=== PATIENT | female | born 1995 | race Caucasian/White ===

== ENCOUNTER 2023-06-18 04:56 | Emergency (ER) | payer BC ==
[~2023-06-18 04:56] MED LIST: KETOROLAC 30 MG/ML INJ ONE; NA CHLORIDE 0.9% 1,000 ML ONE
--- OUTSIDE RECORDS SUMMARY | 2023-06-18 05:00 | XMS REPORT | Continuity of Care Document ---
:1995 Author Organization [facility] t Address [address] [place] [address] [address] [place] [address] Care Team Providers Name Role Phone NGUYEN PEREZ Primary Care Physician Unavailable CRISTOBAL DIAZ Attending Clinician Unavailable Pob, Adc Lab Main Attending Clinician Unavailable Cristobal Diaz MD Attending Clinician Doctor Unassigned, [place] Attending Clinician Unavailable Vls-Lab Attending Clinician Unavailable Nguyen Perez MD Attending Clinician [phone] Mali Caballero MD Attending Clinician MALI CABALLERO Attending Clinician Unavailable NGUYEN PEREZ Attending Clinician Unavailable SHAKEEL HUGHES Attending Clinician Unavailable Page Dunham MD Attending Clinician Payers Payer Name Policy Type Policy Number Effective Date Expiration Date S [facility] [id number] 2019 00:00:00 Problems Condition Condition Condition Status Onset Resolution Last Treating Co mments Source Name Details Category Date Date Treatment Clinician Date Rectal Rectal Disease Active Univers bleeding bleeding 3-14 ity of 00:00: [place] [facility] Allergies, Adverse Reactions, Alerts Allergy Allergy Status Severity Reaction(s) Onset Inactive Treating Comm ents Source Name Type Date Date Clinician Cefprozi Propensi Active Rash Univer s l ty to 6-11 ity of adverse 00:00: [place] reaction 00 Medical s Branch CEFPROZI DRUG Active Rash Univers L INGREDI 6-11 ity of 00:00: [place] 00 Medical Branch Social History Social Habit Start Date Stop Date Quantity Comments Source Exposure to Not sure University SARS-CoV-2 [facility] (event) Branch Alcohol intake 2022-02-04 2022-02-04 Current University 00:00:00 00:00:00 non-drinker of [facility] alcohol Branch (finding) Tobacco use and 2015-05-04 2015-05-04 Never used Universit y of exposure 00:00:00 00:00:00 [facility] Sex Assigned At [birth year] Universit y of 00:00:00 00:00:00 [facility] Smoking Status Start Date Stop Date Source Never smoker [facility] Medications Ordered Filled Start Stop Current Ordering Indication Dosage Frequency Signature Comments Components Source Medication Medication Date Date Medication? Clinician (SIG) Name Name Sulfacetami Yes [id number] Apply to Univers de 3-08 area(s) at ity of Sodium-Sulf [place] 10-5 % 00 Medical (w/v) Lotn Branch clindamycin Yes [id number] Apply to Univers 1 % gel 3-08 area(s) ity of 00:00: every [place] 00 morning. Medical Branch Sulfacetami 0 Yes [id number] Apply to Univers de 3-08 area(s) at ity of Sodium-Sulf 00:[place] 10-5 % 00 Medical (w/v) Lotn Branch clindamycin Yes [id number] Apply to Univers 1 % gel 3-08 area(s) ity of 00:00: every [place] 00 morning. Medical Branch Sulfacetami 0 Yes [id number] Apply to Univers de 3-08 area(s) at ity of Sodium-Sulf 00:[place]: [place] 10-5 % 00 Medical (w/v) Lotn Branch clindamycin 0 Yes [id number] Apply to Univers 1 % gel 3-08 area(s) ity of 00:00: every [place] 00 morning. Medical Branch Sulfacetami 0 Yes [id number] Apply to Univers de 3-08 area(s) at ity of Sodium-Sulf 00:00: [place] 10-5 % 00 Medical (w/v) Lotn Branch clindamycin Yes [id number] Apply to Univers 1 % gel 3-08 area(s) ity of 00:00: every [place] 00 morning. Medical Branch ergocalcife 2018-11 Yes [id number] Take 1 Univers rol, 1-17 capsule by ity of vitamin d2, 00:00: mouth [place] (VITAMIN 00 weekly. Medical D2) 50,000 Branch unit capsule ergocalcife 2018-11 Yes [id number] Take 1 Univers rol, 1-17 capsule by ity of vitamin d2, 00:00: mouth [place] (VITAMIN 00 weekly. Medical D2) 50,000 Branch unit capsule ergocalcife 2018-11 Yes [id number] Take 1 Univers rol, 1-17 capsule by ity of vitamin d2, 00:00: mouth [place] (VITAMIN 00 weekly. Medical D2) 50,000 Branch unit capsule ergocalcife 2018-11 Yes [id number] Take 1 Univers rol, 1-17 capsule by ity of vitamin d2, 00:00: mouth [place] (VITAMIN 00 weekly. Medical D2) 50,000 Branch unit capsule ASHWAGANDHA Yes Univer s ROOT 9-11 ity of EXTRACT,BUL 09:41: [place] [address] Medical Branch ASHWAGANDHA Yes Univer s ROOT 9-11 ity of EXTRACT,BUL 09:41: [address] ASHIDGANDHA Yes Univer s ROOT 9-11 ity of EXTRACT,BUL 09:41: [place] [address] Medical [place] ASHWAGANDHA Yes Univer s ROOT 9-11 ity of EXTRACT,BUL 09:41: [place] [address] Medical Branch meloxicam Yes [id number] Take 1-2 Univers 7.5 mg 8-30 tabs daily ity of tablet 00:00: before [place] 00 periods. Medical Branch meloxicam Yes [id number] Take 1-2 Univers 7.5 mg 8-30 tabs daily ity of tablet 00:00: before [place] 00 periods. Medical Branch meloxicam Yes [id number] Take 1-2 Univers 7.5 mg 8-30 tabs daily ity of tablet 00:00: before [place] 00 periods. [facility] meloxicam 0 Yes [id number] Take 1-2 Univers 7.5 mg 8-30 tabs daily ity of tablet 00:00: before [place] 00 periods. [facility] Immunizations Ordered Immunization Filled Immunization Date Status Commen ts Source Name Name HPV 2014-05-17 Completed University of 00:00:00 [facility] HPV 2014-05-17 Completed University of 00:00:00 [facility] HPV 2014-05-17 Completed University of 00:00:00 [facility] HPV 2014-05-17 Completed University of 00:00:00 [facility] HEPATITIS A 2011-07-05 Completed University of 00:00:00 [facility] HEPATITIS A 2011-07-05 Completed University of 00:00:00 [facility] HEPATITIS A 2011-07-05 Completed University of 00:00:00 [facility] HEPATITIS A 2011-07-05 Completed University of 00:00:00 [facility] Influenza Virus 2010-07-10 Completed Universit y of Vaccine Quad Nasal 00:00:00 [facility] Influenza Virus 2010-07-10 Completed Universit y of Vaccine Quad Nasal 00:00:00 [facility] Influenza Virus 2010-07-10 Completed Universit y of Vaccine Quad Nasal 00:00:00 [facility] Influenza Virus 2010-07-10 Completed Universit y of Vaccine Quad Nasal 00:00:00 [facility] Meningococcal 2009-08-06 Completed University of Polysaccharide 00:00:00 [place] Med[facility] eri (groups A, C, Y and Branc h W-135) conjugate vaccine (MCV4P) Meningococcal 2009-08-06 Completed University of Polysaccharide 00:00:00 [place] Medi eri (groups A, C, Y and Branc h W-135) conjugate vaccine (MCV4P) Meningococcal 2009-08-06 Completed University of Polysaccharide 00:00:00 [place] Med[facility]i (groups A, C, Y and Branc h W-135) conjugate vaccine (MCV4P) Meningococcal 2009-08-06 Completed University of Polysaccharide 00:00:00 [place] Med[facility]i (groups A, C, Y and Branc h W-135) conjugate vaccine (MCV4P) HPV 2009-07-10 Completed University of 00:00:00 [facility] Influenza Virus 2009-07-10 Completed Universit y of Vaccine Quad Nasal 00:00:00 [facility] Varicella 2009-07-10 Completed University of (varivax)(chicken 00:00:00 [place] [facility] pox) Branch TDAP 2009-07-10 Completed University of 00:00:00 [facility] HPV 2009-07-10 Completed University of 00:00:00 [facility] Influenza Virus 2009-07-10 Completed Universit y of Vaccine Quad Nasal 00:00:00 [facility] Varicella 2009-07-10 Completed University of (varivax)(chicken 00:00:00 [place] [facility] pox) Branch TDAP 2009-07-10 Completed University of 00:00:00 [facility] HPV 2009-07-10 Completed University of 00:00:00 [facility] Influenza Virus 2009-07-10 Completed Universit y of Vaccine Quad Nasal 00:00:00 [facility] Varicella 2009-07-10 Completed University of (varivax)(chicken 00:00:00 [place] [facility] pox) Branch TDAP 2009-07-10 Completed University of 00:00:00 [facility] HPV 2009-07-10 Completed University of 00:00:00 [facility] Influenza Virus 2009-07-10 Completed Universit y of Vaccine Quad Nasal 00:00:00 [facility] Varicella 2009-07-10 Completed University of (varivax)(chicken 00:00:00 [place] [facility] pox) Branch TDAP 2009-07-10 Completed University of 00:00:00 [facility] HEPATITIS A 2005-01-29 Completed University of 00:00:00 [facility] HEPATITIS A 2005-01-29 Completed University of 00:00:00 [facility] HEPATITIS A 2005-01-29 Completed University of 00:00:00 [facility] HEPATITIS A 2005-01-29 Completed University of 00:00:00 [facility] Branch IPV 2002-02-18 Completed University of 00:00:00 [facility] Branch MMR 2002-02-18 Completed University of 00:00:00 [facility] Branch IPV 2002-02-18 Completed University of 00:00:00 [facility] Branch MMR 2002-02-18 Completed University of 00:00:00 [facility] Branch IPV 2002-02-18 Completed University of 00:00:00 [facility] Branch MMR 2002-02-18 Completed University of 00:00:00 [facility] IPV 2002-02-18 Completed University of 00:00:00 [facility] MMR 2002-02-18 Completed University of 00:00:00 [facility] TDAP 2002-01-29 Completed University of 00:00:00 [facility] TDAP 2002-01-29 Completed University of 00:00:00 [facility] TDAP 2002-01-29 Completed University of 00:00:00 [facility] TDAP 2002-01-29 Completed University of 00:00:00 [facility] TDAP 1999-04-16 Completed University of 00:00:00 [facility] Heamophilus Influenza 1999-04-16 Completed Uni versity of B 00:00:00 [facility] TDAP 1999-04-16 Completed University of 00:00:00 [facility] Heamophilus Influenza 1999-04-16 Completed Uni versity of B 00:00:00 [facility] TDAP 1999-04-16 Completed University of 00:00:00 [facility] Heamophilus Influenza 1999-04-16 Completed Uni versity of B 00:00:00 [facility] TDAP 1999-04-16 Completed University of 00:00:00 [facility] Heamophilus Influenza 1999-04-16 Completed Uni versity of B 00:00:00 [facility] Varicella 1998-12-20 Completed University of (varivax)(chicken 00:00:00 [place] [facility] [place] pox) Branch [facility] 1998-12-20 Completed University of 00:00:00 [facility] Varicella 1998-12-20 Completed University of (varivax)(chicken 00:00:00 [place] [facility] [place] pox) Branch [facility] 1998-12-20 Completed University of 00:00:00 [facility] Varicella 1998-12-20 Completed University of (varivax)(chicken 00:00:00 [place] [facility] [place] pox) Branch [facility] 1998-12-20 Completed University of 00:00:00 [facility] Varicella 1998-12-20 Completed University of (varivax)(chicken 00:00:00 [place] [facility] [place] pox) Branch [facility] 1998-12-20 Completed University of 00:00:00 [facility] Hep B, Adol or Pedi 1998-09-06 Completed Unive rsity of Dosage 00:00:00 [facility] Hep B, Adol or Pedi 1998-09-06 Completed Unive rsity of Dosage 00:00:00 [facility] Branch Hep B, Adol or Pedi 1998-09-06 Completed Unive rsity of Dosage 00:00:00 [place] [facility] Hep B, Adol or Pedi 1998-09-06 Completed Unive rsity of Dosage 00:00:00 [facility] Branch TDAP 1998-06-21 Completed University of 00:00:00 [facility] Branch Heamophilus Influenza 1998-06-21 Completed Uni versity of B 00:00:00 [place] [facility] Polio (IPV/OPV) 1998-06-21 Completed Universit y of 00:00:00 [place] [facility] TDAP 1998-06-21 Completed University of 00:00:00 [facility] Branch Heamophilus Influenza 1998-06-21 Completed Uni versity of B 00:00:00 [facility] Branch Polio (IPV/OPV) 1998-06-21 Completed Universit y of 00:00:00 [facility] Branch TDAP 1998-06-21 Completed University of 00:00:00 [facility] Branch Heamophilus Influenza 1998-06-21 Completed Uni versity of B 00:00:00 [facility] Branch Polio (IPV/OPV) 1998-06-21 Completed Universit y of 00:00:00 [facility] Branch TDAP 1998-06-21 Completed University of 00:00:00 [facility] Branch Heamophilus Influenza 1998-06-21 Completed Uni versity of B 00:00:00 [facility] Branch Polio (IPV/OPV) 1998-06-21 Completed Universit y of 00:00:00 [facility] Branch Hep B, Adol or Pedi 1998-04-20 Completed Unive rsity of Dosage 00:00:00 [place] [facility] Hep B, Adol or Pedi 1998-04-20 Completed Unive rsity of Dosage 00:00:00 [place] [facility] Hep B, Adol or Pedi 1998-04-20 Completed Unive rsity of Dosage 00:00:00 [place] [facility] Hep B, Adol or Pedi 1998-04-20 Completed Unive rsity of Dosage 00:00:00 [facility] Branch TDAP 1998-04-12 Completed University of 00:00:00 [facility] Branch Heamophilus Influenza 1998-04-12 Completed Uni versity of B 00:00:00 [facility] Branch Polio (IPV/OPV) 1998-04-12 Completed Universit y of 00:00:00 [facility] TDAP 1998-04-12 Completed University of 00:00:00 [facility] Branch Heamophilus Influenza 1998-04-12 Completed Uni versity of B 00:00:00 [facility] Branch Polio (IPV/OPV) 1998-04-12 Completed Universit y of 00:00:00 [facility] TDAP 1998-04-12 Completed University of 00:00:00 [facility] Heamophilus Influenza 1998-04-12 Completed Uni versity of B 00:00:00 [facility] Branch Polio (IPV/OPV) 1998-04-12 Completed Universit y of 00:00:00 [facility] Branch TDAP 1998-04-12 Completed University of 00:00:00 [facility] Heamophilus Influenza 1998-04-12 Completed Uni versity of B 00:00:00 [facility] Polio (IPV/OPV) 1998-04-12 Completed Universit y of 00:00:00 [facility] TDAP 1998-02-20 Completed University of 00:00:00 [facility] Heamophilus Influenza 1998-02-20 Completed Uni versity of B 00:00:00 [facility] Polio (IPV/OPV) 1998-02-20 Completed Universit y of 00:00:00 [facility] TDAP 1998-02-20 Completed University of 00:00:00 [facility] Heamophilus Influenza 1998-02-20 Completed Uni versity of B 00:00:00 [facility] Polio (IPV/OPV) 1998-02-20 Completed Universit y of 00:00:00 [facility] TDAP 1998-02-20 Completed University of 00:00:00 [facility] Heamophilus Influenza 1998-02-20 Completed Uni versity of B 00:00:00 [facility] Polio (IPV/OPV) 1998-02-20 Completed Universit y of 00:00:00 [facility] TDAP 1998-02-20 Completed University of 00:00:00 [facility] Heamophilus Influenza 1998-02-20 Completed Uni versity of B 00:00:00 [facility] Polio (IPV/OPV) 1998-02-20 Completed Universit y of 00:00:00 [facility] Hep B, Adol or Pedi 1998-01-22 Completed Unive rsity of Dosage 00:00:00 [facility] Hep B, Adol or Pedi 1998-01-22 Completed Unive rsity of Dosage 00:00:00 [facility] Hep B, Adol or Pedi 1998-01-22 Completed Unive rsity of Dosage 00:00:00 [facility] Hep B, Adol or Pedi 1998-01-22 Completed Unive rsity of Dosage 00:00:00 [facility] Vital Signs Vital Name Observation Time Observation Value Comments Source Systolic blood 2022-02-04 15:56:00 149 mm[Hg] Univer sity of pressure [facility] Diastolic blood 2022-02-04 15:56:00 95 mm[Hg] Unive rsity of pressure [facility] Heart rate 2022-02-04 15:56:00 102 /min [facility] Body temperature 2022-02-04 15:56:00 [facility].28 [facility] height 2022-02-04 15:56:00 152.4 cm [facility] Body weight 2022-02-04 15:56:00 53.524 kg [facility] BMI 2022-02-04 15:56:00 23.05 kg/m2 [facility] Oxygen saturation in 2022-02-04 15:56:00 98 /min [facility] blood by [facility] Pulse oximetry Branch Procedures Procedure Date / Time Performed Performing Clinician [facility] e ASSIGNMENT OF BENEFITS 2022-02-05 16:02:29 Doctor Unassigned, No [facility] Encounters Start End Encounter Admission Attending Care Care Encounter Source Date/Time Date/Time Type Type Clinicians Facility Department ID 2022-06-04 2022-06-04 Outpatient R JOE [facility] [id number] Univers 13:30:00 13:30:00 [facility] 2022-06-04 2022-06-04 Outpatient R JOE [facility] [id number] Univers 13:30:00 13:30:00 [facility] 2022-02-05 2022-02-05 Vest Front Presser Taj [facility] Lab Main [facility] 1.2.8 [id number] Univers 11:15:00 11:30:00 [facility] [id number] [id number] [phone] Nh marcel BONE [address] [place] [address] 2022-02-05 2022-02-05 Outpatient R LE, [facility] [id number] Univers 11:15:00 11:15:00 [facility] 2022-02-05 2022-02-05 Orders Doctor SOL [id number] Univers 00:00:00 00:00:00 Only Unassigned, LICO [id number] ity of [facility] [id number] [place] [phone] [address] 2022-02-04 2022-02-04 Vest Front Presser Vls-Lab [facility] [id number] Univers 12:15:00 12:30:00 Visit Joe [facility] SPECIALTY [id number] it[place] [id number] AT [phone] Nh marcel ANDREWS [address] [place] [address] 2022-02-04 2022-02-04 Outpatient R LE, [facility] [id number] Univers 11:00:00 11:48:29 [facility] 2022-02-04 2022-02-04 Outpatient R LE, [facility] [id number] Univers 11:00:00 11:48:29 [facility] 2022-02-04 2022-02-04 [facility] [id number] Univers 11:00:00 11:48:29 Visit [facility] SPECIALTY [id number] [place] [id number] [phone] Nh marcel ANDREWS 072 [facility] 2021-04-11 2021-04-11 [facility] 1.2.840.114 [id number] Univers 00:00:00 00:00:00 Secure Msg Nguyen Caro [id number] [place] [id number] [phone] [address] 2021-03-06 2021-03-06 [facility] 1.2.840.114 [id number] Univers 00:00:00 00:00:00 Secure Msg Mali Richter MULTISPEC [id number] it[place] I[place] [id number] [phone] [address] [facility] 2021-02-02 2021-02-02 Telephone Federico [facility] 1.2.840.114 [id number] Univers 00:00:00 00:00:00 Mali Richter HEALTH [id number] ity of CLINICS [id number] [phone] [address] 2021-01-29 2021-01-29 [facility] 1.2.840.114 [id number] Univers 10:19:43 11:12:25 Visit Mali Richter MULTISPEC [id number] it[place] [id number] [phone] [address] [facility] 2021-01-29 2021-01-29 Outpatient R FEDERICO [facility] [id number] Univers 10:30:00 10:30:[address] [facility] 2020-11-22 2020-11-22 Orders Doctor HORTON 1.2.840.114 [id number] Univers 00:00:00 00:00:00 Only Unassigned, LICO [id number] ity of [place] [facility] [id number] Ralph as [phone] [place] [address] Branch 2020-11-13 2020-11-13 [facility] [id number] Univers 13:30:00 13:30:[address] [facility] 2020-11-02 2020-11-02 Orders Doctor HORTON 1.2.840.114 [id number] Univers 00:00:00 00:00:00 Only Unassigned, LICO [id number] ity of [place] [facility] [id number] [place] as [phone] [address] 2020-10-18 2020-10-18 Telephone [facility] 1.2.840.114 [id number] Univers 00:00:00 00:00:00 Nguyen A [place] [id number] [place] [id number] [phone] [address] 2020-10-02 2020-10-02 [facility] [id number] Univers 10:30:00 10:30:[address] [facility] 2020-10-02 2020-10-02 Orders SOL Perez 1.2.840.114 [id number] Univers 00:00:00 00:00:00 Only Nguyen [place] [id number] ity of [facility] [id number] [place] as [phone] [address] 2020-09-27 2020-09-27 Telephone [facility] 1.2.840.114 [id number] Univers 00:00:00 00:00:00 Nguyen Treviño [place] [id number] [place] [id number] [phone] [address] 2020-09-26 2020-09-26 [facility] [id number] Univers 11:30:00 11:30:[address] [facility] 2020-09-15 2020-09-15 Outpatient R ELLEN [facility] [id number] Univers 08:00:00 08:00:[address] [facility] 2020-09-08 2020-09-08 Patient Perez, [facility] 1.2.840.114 [id number] Univers 00:00:00 00:00:00 Secure Msg Nguyen A [place] [id number] [place] [id number] [phone] [address] 2020-07-17 2020-07-17 Patient Chris [facility] 1.2.840.114 [id number] Univers 00:00:00 00:00:00 Secure Msg Nguyen A [place] [id number] [place] [id number] [phone] [address] 2020-02-21 2020-02-21 Patient Chris [facility] 1.2.840.114 [id number] Univers 00:00:00 00:00:00 Secure Msg Nguyen Kamila [facility] [id number] ity of [place] [id number] [place] as Professio [phone] [address] One 2019-12-30 2019-12-30 Refill Chris [facility] 1.2.840.114 [id number] Univers 00:00:00 00:00:00 Nguyen A [place] [id number] [place] [id number] [phone] [address] 2019-11-11 2019-11-11 Patient Chris [facility] 1.2.840.114 [id number] Univers 00:00:00 00:00:00 Secure Msg Nguyen A [place] [id number] [place] [id number] [phone] [address] 2019-08-06 2019-08-06 Orders Page Dunham 1.2.601.001 [id number] Univers 00:00:00 00:00:00 Only Cam LICO [id number] it y of [facility] [id number] [place] as [phone] [address] 2019-08-04 2019-08-04 Office Page Dunham [facility] [id number] Univers 09:19:41 10:18:43 Visit Cam Daniel [id number] i ty [place] [id number] [phone] [facility] [address] [facility] 2019-07-22 2019-07-22 [facility] 1.2.840.114 [id number] Univers 00:00:00 00:00:00 Nguyen Caro [id number] [id number] [phone] [facility] [address] [facility] 2019-07-04 2019-07-04 [facility] 1.2.840.114 [id number] Univers 00:00:00 00:00:00 Management Nguyen Caro [id number] [place] [id number] [phone] [address] 2019-06-21 2019-06-21 Telephone [facility] [id number] Univers 00:00:00 00:00:00 Nguyen Caro [id number] it[id number] [phone] [address] 2019-06-17 2019-06-17 [facility] [id number] Univers 14:42:27 15:55:33 Visit Nguyen Caro [id number] it[id number] [phone] [address] 2019-06-17 2019-06-17 Orders Doctor SOL [id number] Univers 00:00:00 00:00:00 Only Unassigned, LICO [id number] ity of [facility] [id number] Ralph as [phone] [place] [id number] Branch Results This patient has no known results.
[2023-06-18 05:20] LABS: Albumin 3.7 g/dL (3.4-5.0); Bilirubin Total 0.2 mg/dL (0.2-1.0); Potassium 3.4 mEq/L (3.5-5.1)
[2023-06-18 05:21] LABS: Absolute Lymphocytes (CBC) 2.5 K/uL (0.7-4.9); Hematocrit 40.1 % (36.0-45.0); Lymphocytes % 30.5 % (15.3-44.8); MCV 83.7 fL (80-100); MPV 6.8 fL (7.6-11.3); RBC Red Blood Cell Count 4.79 M/uL (3.86-4.86); Specific Gravity 1.012 (1.005-1.030); Urine Bacteria None Seen /HPF (<20); Urine Bilirubin NEGATIVE (Negative); Urine Blood 3+ (OVER) (Negative); Urine Clarity Extremely Turbid (Clear); Urine Color Light-Red (Yellow); Urine Glucose NEGATIVE (Negative); Urine Protein 2+ (Negative); Urine RBC >50 /HPF (None Seen); Urine Urobilinogen Normal (Normal); Urine pH 7.5 (5.0-7.0)
[2023-06-18 05:22] LABS: Specific Gravity 1.012 (1.005-1.030)
[2023-06-18] MEDS ORDERED: metroNIDAZOLE 500 MG TABLET ONE (06:05)
[2023-06-18] MEDS ORDERED: DIPHENOX/ATROP SULF 1 TAB PO ONE (06:05)
[2023-06-18] MEDS ORDERED: PROMETHAZINE 25 MG TABLET ONE (06:05)
[2023-06-18] MEDS ORDERED: levoFLOXacin 250 MG TAB ONE (06:05)
[2023-06-18] MEDS ORDERED: DICYCLOMINE HCL 10 MG CAP ONE (06:06)
--- NOTE | 2023-06-18 07:44 | RAD REPORT ---
EXAM DESCRIPTION: CT - Abdomen Pelvis W Contrast - 06/18/2023 6:47 am CLINICAL HISTORY: Abdominal pain COMPARISON: none. TECHNIQUE: Computed axial tomography of the abdomen pelvis was obtained. 100 cc Isovue-300 was admin istered intravenously. Oral contrast was not requested which limits evaluation of bowel and appendix All CT scans are performed using dose optimization technique as appropriate and may include automated exposure control or mA/KV adjustment according to patient size. FINDINGS: The liver, spleen, pancreas, adrenal and kidneys appear unremarkable. There is no evidence of diverticulitis. Normal appendix Fluid throughout nondilated large and small bowel. IMPRESSION: Fluid throughout nondilated large and small bowel may indicate an enteritis
--- NOTE | 2023-06-18 08:08 | ER ---
Nurse's Notes [facility] Name: Maribel Ocampo Age: 27 yrs Sex: Female : 1995 Arrival Date: 06/18/2023 Time: 02:31 Bed 5 Private MD: Diagnosis: Enteritis, abdominal pain Presentation: 06/18 02:39 Chief complaint: Patient states: NAUSEA AND DIARRHEA, ABD PAIN X 3 WKS. Coronavirus rv screen: At this time, the client does not indicate any symptoms associated with coronavirus-19. Ebola Screen: No symptoms or risks identified at this time. Initial Sepsis Screen: Does the patient meet any 2 criteria? No. Patient's initial sepsis screen is negative. Does the patient have a suspected source of infection? No. Patient's initial sepsis screen is negative. Risk Assessment: Do you want to hurt yourself or someone else? Patient reports no desire to harm self or others. Onset of symptoms was June 18, 2023. 02:39 Method Of Arrival: Ambulatory rv 02:39 Acuity: ELIZABETH 3 rv Triage Assessment: 02:40 General: Appears uncomfortable, Behavior is calm, cooperative. Pain: Complains of pain rv in abdomen. EENT: Ear canal. Neuro: Level of Consciousness is awake, alert, obeys commands, Oriented to person, place, time, situation. Cardiovascular: Capillary refill < 3 seconds. Respiratory: Airway is patent Respiratory effort is even, unlabored. GI: Abdomen is flat, non-distended, Bowel sounds present X 4 quads. Abd is soft and non tender X 4 quads. 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 - Social history:: Smoking status: Patient denies any tobacco usage or history of. - Family history:: not pertinent. Screenin:42 [facility] ED Fall Risk Assessment (Adult) History of falling in the last 3 months, rv including since admission No falls in past 3 months (0 pts) Confusion or Disorientation No (0 pts) Intoxicated or Sedated No (0 pts) Impaired Gait No (0 pts) Mobility Assist Device Used No (0 pt) Altered Elimination No (0 pt) Score/Fall Risk Level 0 - 2 = Low Risk Oriented to surroundings, Maintained a safe environment, Educated pt \T\ family on fall prevention, incl call for assistance when getting out of bed, Assessed \T\ reinforced patient's understanding of fall precautions, Provided non-skid footwear, Hourly rounding (assess needs \T\ fall precautionary measures) done, Used ambulatory aids as needed (educated on \T\ assisted with), Used gait belt as appropriate. Abuse screen: Denies threats or abuse. Denies injuries from another. Nutritional screening: No deficits noted. Tuberculosis screening: No symptoms or risk factors identified. Assessment: 07:30 Neuro: Level of Consciousness is awake, alert, obeys commands, Oriented to person, db place, time, situation. 08:00 Reassessment: Patient appears in no apparent distress at this time. Patient and/or db family updated on plan of care and expected duration. Pain level reassessed. Patient is alert, oriented x 3, equal unlabored respirations, skin warm/dry/pink. Patient states feeling better. General: Appears in no apparent distress. comfortable, Behavior is calm, cooperative. Vital Signs: 02:39 BP 159 / 104; Pulse 108; Resp 19; Temp 99; Pulse Ox 100% ; Weight 45 kg; Height 5 ft. 0 rv in. ; 05:30 BP 141 / 91; Pulse 92; Resp 18; Pulse Ox 100% on R/A; rv 06:33 BP 104 / 71; Pulse 78; Resp 16 S; Pulse Ox 99% on R/A; as6 07:19 BP 113 / 83; Pulse 74; Resp 16; Pulse Ox 99% ; ko1 08:00 BP 116 / 79; Pulse 76; Resp 16; Pulse Ox 100% on R/A; db 02:39 Body Mass Index 19.38 (45.00 kg, 152.4 cm) rv ED Course: 02:31 Patient arrived in ED. jj6 02:38 Johnny Jennings RN is Primary Nurse. rv 02:39 Triage completed. rv 02:42 Ashish Tsai MD is Attending Physician. sp4 02:42 Arm band placed on. rv 02:42 Patient has correct armband on for positive identification. Bed in low position. Call rv light in reach. Side rails up X 1. Client placed on continuous cardiac and pulse oximetry monitoring. NIBP monitoring applied. 02:55 Inserted saline lock: 20 gauge in right antecubital area, using aseptic technique. rv Blood collected. 07:11 Abdomen In Process Unspecified. EDMS 07:13 Attending Physician role handed off by Ashish Tsai MD sp3 07:13 Myke Rosen MD is Attending Physician. sp3 07:18 Urine Culture Sent. ko1 08:21 Provided Education on: na. ko1 08:21 No provider procedures requiring assistance completed. IV discontinued, intact, ko1 bleeding controlled, No redness/swelling at site. Pressure dressing applied. Administered Medications: 03:02 Drug: NS 0.9% IV 1000 ml Route: IV; Rate: 1 bolus; Site: right antecubital; rv 05:30 Follow up: IV Status: Completed infusion; IV Intake: 1000ml rv 05:30 Drug: TORadol - Ketorolac IVP 30 mg Route: IVP; Site: right antecubital; rv 06:00 Follow up: Response: No adverse reaction rv 05:59 Drug: Dicyclomine PO 20 mg Route: PO; rv 05:59 Drug: Promethazine PO 25 mg Route: PO; rv 05:59 Drug: LevOfloxacin PO 500 mg Route: PO; rv 05:59 Drug: metroNIDAZOLE PO 500 mg Route: PO; rv 06:00 Drug: Diphenoxylate-Atropine PO 2 tabs Route: PO; rv Medication: 02:42 VIS not applicable for this client. rv Intake: 05:30 IV: 1000ml; Total: 1000ml. rv Outcome: 08:08 Discharge ordered by . sp3 08:21 Discharged to home ambulatory, with family. ko1 08:21 Condition: good 08:21 Discharge instructions given to patient, family, Instructed on discharge instructions, follow up and referral plans. medication usage, Demonstrated understanding of instructions, follow-up care, medications, Prescriptions given X x5 08:23 Patient left the ED. ko1 Signatures: Dispatcher [employer] EDWY Johnny Jennings RN RN rv Myke Rosne MD MD sp3 Rosalina Dominguez Ashby, RN RN as6 Nancy Dahl RN RN ko1 Hyun Resendiz RN RN db Ashish Tsai MD MD sp4
--- NOTE | 2023-06-18 08:08 | EDPHYS ---
Physician Documentation [facility] Name: Maribel Ocampo Age: 27 yrs Sex: Female : 1995 Arrival Date: 06/18/2023 Time: 02:31 Bed 5 Private MD: ED Physician Myke Rosen HPI: 06/18 02:48 This 27 yrs old White Female presents to ER via Ambulatory with complaints of Ear Pain, sp4 Abdominal Pain. 02:48 27-year-old female presents with 3 weeks of lower abdominal pain. Patient states she is sp4 on control. Patient is on the nextstellis ( Drospirenone / estetrol ) control tablets daily . Patient reports worsening abdominal pain for the past 3 weeks in area of lower abdomen with no additional symptoms. Did visit urgent care clinic yesterday and was advised to manage it as constipation. . 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 - Social history:: Smoking status: Patient denies any tobacco usage or history of. - Family history:: not pertinent. ROS: 02:48 Constitutional: Negative for fever, chills, and weight loss, Abdomen/GI: Negative for sp4 nausea, vomiting, diarrhea, and constipation, positive for lower abdominal pain 02:48 All other systems are negative. Exam: 02:48 Constitutional: This is a well developed, well nourished patient who is awake, alert, sp4 and in no acute distress. Head/Face: Normocephalic, atraumatic. Eyes: Pupils equal round and reactive to light, extra-ocular motions intact. Lids and lashes normal. Conjunctiva and sclera are not injected. Cornea within normal limits. Periorbital areas with no swelling, redness, or edema. ENT: Nares patent. No nasal discharge, no septal abnormalities noted. Tympanic membranes are normal and external auditory canals are clear. Oropharynx with no redness, swelling, or masses, exudates, or evidence of obstruction, uvula midline. Mucous membranes moist. Neck: Trachea midline, no thyromegaly or masses palpated, and no cervical lymphadenopathy. Supple, full range of motion without nuchal rigidity, or vertebral point tenderness. Chest/axilla: Normal chest wall appearance and motion. Nontender with no deformity. No lesions are appreciated. Cardiovascular: Regular rate and rhythm with a normal S1 and S2. No gallops, murmurs, or rubs. Normal PMI, no JVD. No pulse deficits. Respiratory: Lungs have equal breath sounds bilaterally, clear to auscultation and percussion. No rales, rhonchi or wheezes noted. No increased work of breathing, no retractions or nasal flaring. Abdomen/GI: Soft, lower abdominal tenderness, with normal bowel sounds. No distension or tympany. No guarding or rebound. Positive lower abdominal tenderness without rebound . Back: No spinal tenderness. No costovertebral tenderness. Skin: Warm, dry with normal turgor. Normal color with no rashes, no lesions, and no evidence of cellulitis. MS/ Extremity: Pulses equal, no cyanosis. Neurovascular intact. Full, normal range of motion. Neuro: Awake and alert, GCS 15, oriented to person, place, time, and situation. Cranial nerves II-XII grossly intact. Motor strength 5/5 in all extremities. Sensory grossly intact. Psych: Awake, alert, with orientation to person, place and time. Behavior, mood, and affect are within normal limits Vital Signs: 02:39 BP 159 / 104; Pulse 108; Resp 19; Temp 99; Pulse Ox 100% ; Weight 45 kg; Height 5 ft. 0 rv in. ; 05:30 BP 141 / 91; Pulse 92; Resp 18; Pulse Ox 100% on R/A; rv 06:33 BP 104 / 71; Pulse 78; Resp 16 S; Pulse Ox 99% on R/A; as6 07:19 BP 113 / 83; Pulse 74; Resp 16; Pulse Ox 99% ; ko1 08:00 BP 116 / 79; Pulse 76; Resp 16; Pulse Ox 100% on R/A; db 02:39 Body Mass Index 19.38 (45.00 kg, 152.4 cm) rv MDM: 02:48 Differential diagnosis: Acute abdominal pain, acute constipation, pancreatitis, sp4 peritonitis, appendicitis, ruptured ovarian cyst, cystic ovarian pain. Data reviewed: vital signs, nurses notes, lab test result(s), radiologic studies, CT scan. 04:28 Patient medically screened. sp4 08:07 ED course: CT demonstrates fluid-filled small loops consistent with her clinical exam. sp3 Patient has no pain at this time. We will safely discharge her home on antibiotics and follow-up with PCP.. 06/18 06:33 Order name: Comprehensive Metabolic Panel; Complete Time: 06:59 EDMS 06/18 06:33 Order name: Lipase; Complete Time: 06:59 EDMS 06/18 06:33 Order name: CBC with Automated Diff; Complete Time: 06:59 EDMS 06/18 06:33 Order name: Urinalysis w/ reflexes; Complete Time: 06:59 EDMS 06/18 06:33 Order name: Test, Urine; Complete Time: 06:59 EDMS 06/18 07:06 Order name: Urine Culture EDMS 06/18 02:46 Order name: CT Abd/Pelvis - IV Contrast Only sp4 06/18 07:10 Order name: Abdomen ; Complete Time: 08:07 EDMS 06/18 02:46 Order name: IV Saline Lock; Complete Time: 02:49 sp4 06/18 02:46 Order name: Labs collected and sent; Complete Time: 02:49 sp4 Administered Medications: 03:02 Drug: NS 0.9% IV 1000 ml Route: IV; Rate: 1 bolus; Site: right antecubital; rv 05:30 Follow up: IV Status: Completed infusion; IV Intake: 1000ml rv 05:30 Drug: TORadol - Ketorolac IVP 30 mg Route: IVP; Site: right antecubital; rv 06:00 Follow up: Response: No adverse reaction rv 05:59 Drug: Dicyclomine PO 20 mg Route: PO; rv 05:59 Drug: Promethazine PO 25 mg Route: PO; rv 05:59 Drug: LevOfloxacin PO 500 mg Route: PO; rv 05:59 Drug: metroNIDAZOLE PO 500 mg Route: PO; rv 06:00 Drug: Diphenoxylate-Atropine PO 2 tabs Route: PO; rv Disposition Summary: 06/18/23 08:08 Discharge Ordered Location: Home sp3 Condition: Stable sp3 Diagnosis - Enteritis, abdominal pain sp3 Followup: sp3 - With: Private Physician - When: Upon discharge from the Emergency Department - Reason: Continuance of care Discharge Instructions: - Discharge Summary Sheet sp4 - Viral Gastroenteritis, Adult, [id number] sp4 - Abdominal Pain, Adult, [id number] sp4 Forms: - Medication Reconciliation Form sp3 - Thank You Letter sp3 - Antibiotic Education sp3 - Prescription Opioid Use sp3 - Patient Portal Instructions sp3 Prescriptions: - ondansetron 4 mg Oral Tablet,disintegrating - take 1 tablet by ORAL route every 6 hours PRN nausea; 30 tablet; Refills: 0, sp4 Product Selection Permitted - Flagyl 500 mg Oral Tablet - take 1 tablet by ORAL route every 8 hours for 10 days; 30 tablet; Refills: 0, sp4 Product Selection Permitted - Levsin 0.125 mg Oral Tablet - take 1 tablet by ORAL route every 8 hours PRN abdominal pain; 30 tablet; sp4 Refills: 0, Product Selection Permitted - Lomotil 2.5-0.025 mg Oral Tablet - take 1 tablet by ORAL route every 6 hours As needed PRN diarrhea; 20 tablet; sp4 Refills: 0, Product Selection Permitted - levofloxacin 500 mg Oral Tablet - take 1 tablet by ORAL route once daily for 7 days; 7 tablet; Refills: 0, sp4 Product Selection Permitted Signatures: Dispatcher [employer] EDMS Johnny Jennings, RN RN rv Myke Rosen MD MD sp3 Ashish Tsai MD MD sp4 Corrections: (The following items were deleted from the chart) 08:19 06:58 CBC+H.LAB.BRZ ordered. EDMS EDMS 08:20 06:58 COMPREHENSIVE METABOLIC PANEL+C.LAB.BRZ ordered. EDMS EDMS 08:20 06:58 LIPASE+C.LAB.BRZ ordered. EDMS EDMS 08:20 06:58 Test, Urine+UC.LAB.BRZ ordered. EDMS EDMS 08:21 06:58 Urinalysis+U.LAB.BRZ ordered. EDMS EDMS
[2023-06-18 08:28] VITALS: O2SAT 99
[2023-06-18 08:29] VITALS: BP 113/83
== END 2023-06-18 08:23 | disposition home or self-care (01) ==
LOC: ER 04:56
DX: K52.9 Noninfective gastroenteritis and colitis, unspecified (principal); Z88.8 Allergy status to other drugs, medicaments and biological substances
CPT/HCPCS: 87088; 85025; 81001; 87086; 36415; 81025; 83690; 80053; 74177; Q9967; Q0169; J7030; 96361; 96374; 99284

== ENCOUNTER 2024-03-29 20:29 | Emergency (ER) | payer BC, OTHER ==
--- NOTE | 2024-03-29 21:34 | EDPHYS ---
Physician Documentation [facility] Name: Maribel Amso Age: 28 yrs Sex: Female : 1995 Arrival Date: 03/29/2024 Time: 20:29 Bed 10 Private MD: ED Physician Ashish Tsai HPI: 03/29 23:48 This 28 yrs old Female presents to ER via Ambulatory with complaints of Rectal Pain. kb 23:48 Pt is a 28 year old female who presents for ulcer in rectum that she would like medication for to treat it. States she has been seeing Dr Troncoso for chronic constipation, had a colonoscopy and followed back up with Karyna today. States she was told she has an ulcer in her rectum and he wanted to do an EGD to further evaluation for ulcerative colitis vs crohns. Pt states she just needs something to treat the ulcer so she came in to get medication. 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 - Infectious Disease History:: Denies. - Social history:: Smoking status: Patient denies any tobacco usage or history of. ROS: 23:47 Constitutional: As per HPI kb Exam: 23:47 Constitutional: This is a well developed, well nourished patient who is awake, alert, kb and in no acute distress. Head/Face: Normocephalic, atraumatic. ENT: Moist Mucous membranes Cardiovascular: Regular rate Respiratory: Respirations even and unlabored. No increased work of breathing. Talking in full sentences Abdomen/GI: Soft, non-tender. No distention Skin: Warm, dry with normal turgor. Normal color. MS/ Extremity: Pulses equal, no cyanosis. Neurovascular intact. Full, normal range of motion. Neuro: Awake and alert, GCS 15, oriented to person, place, time, and situation. Moves all extremities. Normal gait. Vital Signs: 20:50 BP 143 / 92; Pulse 97; Resp 18 S; Temp 98(O); Pulse Ox 100% on R/A; Weight 57.15 kg as6 (R); Height 5 ft. 0 in. ; Pain 7/10; 21:05 BP 146 / 97; Pulse 94; Resp 16; Pulse Ox 100% on R/A; me1 21:36 BP 127 / 81; Pulse 94; Resp 16; Pulse Ox 95% on R/A; me1 20:50 Body Mass Index 24.61 (57.15 kg, 152.4 cm) as6 20:50 Pain Scale: Adult as6 MDM: 20:35 Patient medically screened. kb 23:47 Differential diagnosis: ulcer, colitis, constipation. Data reviewed: vital signs, kb nurses notes. Test considered but Not performed: Labs: cbc and cmp considered but pt is nontoxic in appearance, tolerating po intake. CT: ct abd considered but pt has no abd tenderness . Counseling: I had a detailed discussion with the patient and/or guardian regarding the historical points, exam findings, and any diagnostic results supporting the discharge/admit diagnosis, the need for outpatient follow up, a special equipment technician, to return to the emergency department if symptoms worsen or persist or if there are any questions or concerns that arise at home. ED course: Pt educated to follow up with Dr Troncoso for further eval and treatment as planned. Administered Medications: 21:25 Not Given (Patient Refused): [id number] mg IM once me1 Disposition: 03/30 05:14 Co-signature as Attending Physician, Ashish Tsai MD I agree with the assessment sp4 and plan of care. I reviewed the patient's care provided by the Advanced Practice Provider and agree with the diagnosis and treatment plan. Disposition Summary: 03/29/24 21:33 Discharge Ordered Notes: Location: Home kb Condition: Stable kb Diagnosis - ulcer in rectum kb Followup: kb - With: Emergency Department - When: As needed - Reason: Worsening of condition Followup: kb - With: Private Physician - When: 2 - 3 days - Reason: Recheck today's complaints, Continuance of care, Re-evaluation by your physician Discharge Instructions: - Discharge Summary Sheet kb Forms: - Medication Reconciliation Form kb - Antibiotic Education kb - Prescription Opioid Use kb - Patient Portal Instructions kb - Leadership Thank You Letter kb Signatures: Orly Vazquez FNP-C FNP-Phillip Murray RN RN as6 Ashish Tsai MD MD sp4 Eddleman, Luisana RN me1
--- NOTE | 2024-03-29 21:34 | ER ---
Nurse's Notes [facility] Name: Maribel Amos Age: 28 yrs Sex: Female : 1995 Arrival Date: 03/29/2024 Time: 20:29 Bed 10 Private MD: Diagnosis: ulcer in rectum Presentation: 03/29 20:50 Chief complaint: Patient states: pt states she has a rectal ulcer and wants medicine to as6 help it. Coronavirus screen: At this time, the client does not indicate any symptoms associated with coronavirus-19. Ebola Screen: No symptoms or risks identified at this time. Initial Sepsis Screen: Does the patient meet any 2 criteria? No. Patient's initial sepsis screen is negative. Does the patient have a suspected source of infection? No. Patient's initial sepsis screen is negative. Risk Assessment: Do you want to hurt yourself or someone else? Patient reports no desire to harm self or others. Onset of symptoms. Onset of symptoms is unknown. 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 - Infectious Disease History:: Denies. - Social history:: Smoking status: Patient denies any tobacco usage or history of. Screenin:05 [facility] ED Fall Risk Assessment (Adult) History of falling in the last 3 months, me1 including since admission No falls in past 3 months (0 pts) Confusion or Disorientation No (0 pts) Intoxicated or Sedated No (0 pts) Impaired Gait No (0 pts) Mobility Assist Device Used No (0 pt) Altered Elimination No (0 pt) Score/Fall Risk Level 0 - 2 = Low Risk Maintained a safe environment, Provided non-skid footwear, Hourly rounding (assess needs \T\ fall precautionary measures) done. Abuse screen: Denies threats or abuse. Nutritional screening: No deficits noted. Tuberculosis screening: No symptoms or risk factors identified. Assessment: 21:05 General: Appears uncomfortable, well groomed, well developed, well nourished, Behavior me1 is calm, cooperative, appropriate for age, Reports diagnosed a few weeks ago with an ulcer in her rectum by Dr Nguyen. Was given samples of Linzess that she took but was unable to get the rest at the pharmacy due to insurance denying to pay. Pain: Complains of pain in rectum Pain does not radiate. Pain currently is 3 out of 10 on a pain scale. Quality of pain is described as dull, Pain began Is continuous. Neuro: Level of Consciousness is awake, alert, obeys commands, Oriented to person, place, time, situation, Appropriate for age. Cardiovascular: Capillary refill < 3 seconds Patient's skin is warm and dry. Respiratory: Airway is patent Respiratory effort is even, unlabored, Respiratory pattern is regular, symmetrical. GI: Reports rectal pain. : No signs and/or symptoms were reported regarding the genitourinary system. EENT: No signs and/or symptoms were reported regarding the EENT system. Derm: Skin is intact, is healthy with good turgor, Skin is pink, warm \T\ dry. Musculoskeletal: No signs and/or symptoms reported regarding the musculoskeletal system. Vital Signs: 20:50 BP 143 / 92; Pulse 97; Resp 18 S; Temp 98(O); Pulse Ox 100% on R/A; Weight 57.15 kg as6 (R); Height 5 ft. 0 in. ; Pain 7/10; 21:05 BP 146 / 97; Pulse 94; Resp 16; Pulse Ox 100% on R/A; me1 21:36 BP 127 / 81; Pulse 94; Resp 16; Pulse Ox 95% on R/A; me1 20:50 Body Mass Index 24.61 (57.15 kg, 152.4 cm) as6 20:50 Pain Scale: Adult as6 ED Course: 20:34 Patient arrived in ED. gm2 20:35 Orly Vazquez FNP-C is [facility]. kb 20:35 Ashish Tsai MD is Attending Physician. kb 20:50 Arm band placed on. as6 20:52 Triage completed. as6 20:53 Luisana Fermin, RN is Primary Nurse. me1 21:05 Patient has correct armband on for positive identification. Bed in low position. Call me1 light in reach. Side rails up X2. Provided Education on: POC. Verbalized understanding. . 21:05 Client placed on continuous cardiac and pulse oximetry monitoring. NIBP monitoring me1 applied. Pulse ox on. NIBP on. 21:05 No provider procedures requiring assistance completed. me1 21:39 IV discontinued, intact, bleeding controlled, No redness/swelling at site. Pressure me1 dressing applied. Administered Medications: 21:25 Not Given (Patient Refused): [id number] mg IM once me1 Medication: 21: VIS not applicable for this client. me1 Outcome: 21:33 Discharge ordered by . kamille 21:39 Discharged to home ambulatory, with significant other, me1 21:39 Condition: stable 21:39 Discharge instructions given to patient, significant other, Instructed on discharge instructions, follow up and referral plans. Demonstrated understanding of instructions, follow-up care, 21:40 Patient left the ED. me1 Signatures: Orly Vazquez, APPRENTICE EMBALMER-C EDDIE-Phillip Murray RN RN as6 Luisana Fermin RN RN me1 Coco Interiano 2
[2024-03-29 22:25] VITALS: BP 127/81; TEMP 98; O2SAT 95
== END 2024-03-29 21:40 | disposition home or self-care (01) ==
LOC: ER 20:29
DX: K62.6 Ulcer of anus and rectum (principal); Z88.1 Allergy status to other antibiotic agents
CPT/HCPCS: 99283